=== PATIENT | male | born 1980 ===

== ENCOUNTER 2023-06-11 12:27 | Outpatient (CLI) | payer OTHER | END 2023-06-11 12:28 | disposition EMS.NT | LOC: EMS 12:27 | DX: S61.219A Laceration without foreign body of unspecified finger without damage to nail, initial encounter (principal); W26.8XXA Contact with other sharp object(s), not elsewhere classified, initial encounter; Y92.69 Other specified industrial and construction area as the place of occurrence of the external cause; Y99.0 Civilian activity done for income or pay ==